=== PATIENT | female | born 1965 | race African-American/Black ===

== ENCOUNTER 2024-07-16 18:14 | Emergency (ER) | payer OTHER, MEDICAID ==
[2024-07-16] MEDS ORDERED: HYDROcodone/Acetaminophen 5/325 mg Tablet ONE (20:54)
== END 2024-07-16 22:24 | disposition home or self-care (01) ==
LOC: CSHERS 18:14
DX: S42.492A Other displaced fracture of lower end of left humerus, initial encounter for closed fracture (principal); I10 Essential (primary) hypertension; E11.9 Type 2 diabetes mellitus without complications; W01.0XXA Fall on same level from slipping, tripping and stumbling without subsequent striking against object, initial encounter; Y92.009 Unspecified place in unspecified non-institutional (private) residence as the place of occurrence of the external cause